=== PATIENT | male | born 1985 | race Caucasian/White ===

== ENCOUNTER 2016-10-15 15:53 | Emergency (ER) | payer OTHER ==
[~2016-10-15] VITALS: Ht 177.8 cm; Wt 69.4 kg
[2016-10-15 15:58] VITALS: TEMP 37.1; Ht 177.8 cm; Wt 69.4 kg
[2016-10-15] MEDS ORDERED: SODIUM CHLORIDE 0.9% 1000ML 1,000 ML IV STA (17:58)
--- NOTE | 2016-10-15 18:02 | EMERGENCY ROOM VISIT NOTE ---
History Report prepared by Oj: Mera Ochoa Under the Supervision of: Dr. Qasim Corral M.D. First contact with patient: 17:50 Chief Complaint: CARDIAC ASSESSMENT Stated Complaint: CHEST PAIN,SOB FOR 2 WKS Nursing Triage Summary: Pt c/o CP that started 2 weeks ago "it is a deep pain" Pt also c/o SOB "I have lymes so I am in pain constantly" History of Present Illness The patient is a 31 year old male who presents to the Emergency Room with complaints of persistent chest pain that began two weeks ago. He currently rates his discomfort as an 8/10 in severity. The patient states that his pain is worsened with deep breathing and pushing out his chest. He describes his pain as a tightness, and denies any sharp acute pain. The patient notes a family history of heart disease. The patient states that he has a history of Lyme Disease, noting that he typically has chronic pain. He denies following with anyone from infectious disease regularly. The patient additionally associates shortness of breath with his symptoms today. Source of History: patient Onset: two weeks ago Position: chest Symptom Intensity: 8/10 Quality: other (tightness) Timing: other (persistent) Modifying Factors (Worsening): breathing (deep), other (pushing chest out) Associated Symptoms: + SOB Review of Systems See HPI for pertinent positives & negatives. A total of 10 systems reviewed and were otherwise negative. Past Medical & Surgical Medical Problems: (1) Lyme disease Family History Heart disease Social History Smoking Status: Current Every Day Smoker Marital Status: single Occupation Status: unemployed Current/Historical Medications Scheduled Ada Carbonate (Ada Carbonate), 300 MG PO BID Quetiapine Fumarate Xr (Seroquel Xr), 150 MG PO HS Scheduled PRN Alprazolam (Xanax), 1 MG PO DAILY PRN for Anxiety Allergies Coded Allergies: No Known Allergies (Unverified , 10/15/16) Physical Exam Vital Signs Date Time Temp Pulse Resp B/P Pulse Ox O2 Delivery O2 Flow Rate FiO2 10/15/16 19:57 65 18 127/81 99 Room Air 10/15/16 19:24 71 18 141/92 99 Room Air 10/15/16 18:10 100 Room Air 10/15/16 18:07 88 10/15/16 18:05 77 18 147/99 100 Room Air 10/15/16 18:04 100 Room Air 10/15/16 15:58 37.1 87 18 179/83 97 Room Air Physical Exam GENERAL: Patient is a healthy-appearing well-nourished HEAD: Normocephalic atraumatic EYES: Ocular movements intact pupils equal and react to light OROPHARYNX mucous membranes are moist no exudates present no erythema or edema present NECK: Supple no nuchal rigidity CHEST: Tender to palpation of chest wall. Good equal expansion LUNGS: Clear and equal to auscultation CARDIAC: Normal S1 and S2 ABDOMEN: Soft nontender no guarding BACK: No CVA tenderness EXTREMITIES: No pain upon palpation normal muscle strength in all groups no clubbing cyanosis or edema NEURO: Patient is following commands is answering questions appropriately. Alert and oriented x3 Cranial Nerves 2-12 grossly intact Medical Decision & Procedures ER Provider Diagnostic Interpretation: X-ray results as stated below per interpretation by me and the radiologist: CHEST ONE VIEW PORTABLE CLINICAL HISTORY: CHEST PAIN dyspnea COMPARISON STUDY: No previous studies for comparison. FINDINGS: The bones soft tissues and hemidiaphragms are normal. The cardiomediastinal silhouette is normal. The lungs are clear. The pulmonary vasculature is normal. IMPRESSION: Negative chest. Electronically signed by: Memo Ballesteros M.D. 10/15/2016 6:40 PM Dictated Date/Time: 10/15/2016 6:40 PM Laboratory Results 10/15/16 18:00 Red Blood Count 4.89, Mean Corpuscular Volume 92.0, Mean Corpuscular Hemoglobin 31.5, Mean Corpuscular Hemoglobin Concent 34.2, Mean Platelet Volume 9.9, Neutrophils (%) (Auto) 73.4, Lymphocytes (%) (Auto) 15.3, Monocytes (%) (Auto) 9.4, Eosinophils (%) (Auto) 1.3, Basophils (%) (Auto) 0.3, Neutrophils # (Auto) 7.23, Lymphocytes # (Auto) 1.51, Monocytes # (Auto) 0.93, Eosinophils # (Auto) 0.13, Basophils # (Auto) 0.03 10/15/16 18:00 Test 10/15/16 18:00 10/15/16 18:10 10/15/16 18:16 White Blood Count 9.86 K/uL (4.8-10.8) Red Blood Count 4.89 M/uL (4.7-6.1) Hemoglobin 15.4 g/dL (14.0-18.0) Hematocrit 45.0 % (42-52) Mean Corpuscular Volume 92.0 fL (80-100) Mean Corpuscular Hemoglobin 31.5 pg (25-34) Mean Corpuscular Hemoglobin Concent 34.2 g/dl (32-36) Platelet Count 287 K/uL (130-400) Mean Platelet Volume 9.9 fL (7.4-10.4) Neutrophils (%) (Auto) 73.4 % Lymphocytes (%) (Auto) 15.3 % Monocytes (%) (Auto) 9.4 % Eosinophils (%) (Auto) 1.3 % Basophils (%) (Auto) 0.3 % Neutrophils # (Auto) 7.23 K/uL (1.4-6.5) Lymphocytes # (Auto) 1.51 K/uL (1.2-3.4) Monocytes # (Auto) 0.93 K/uL (0.11-0.59) Eosinophils # (Auto) 0.13 K/uL (0-0.5) Basophils # (Auto) 0.03 K/uL (0-0.2) RDW Standard Deviation 44.3 fL (36.4-46.3) RDW Coefficient of Variation 13.1 % (11.5-14.5) Immature Granulocyte % (Auto) 0.3 % Immature Granulocyte # (Auto) 0.03 K/uL (0.00-0.02) D-Dimer < 190 ug/L FEU (0-500) Est Creatinine Clear Calc Drug Dose 114.0 ml/min Estimated GFR () 127.2 Estimated GFR (Non- 109.8 BUN/Creatinine Ratio 11.9 (10-20) Calcium Level 9.5 mg/dl (8.5-10.1) Total Bilirubin 0.6 mg/dl (0.2-1) Direct Bilirubin 0.1 mg/dl (0-0.2) Aspartate Amino Transf (AST/SGOT) 21 U/L (15-37) Alanine Aminotransferase (ALT/SGPT) 38 U/L (12-78) Alkaline Phosphatase 68 U/L (45-117) Total Creatine Kinase 125 U/L (39-308) Creatine Kinase MB < 0.5 ng/ml (0.5-3.6) Creatine Kinase MB Ratio (0-3.0) Troponin I < 0.015 ng/ml (0-0.045) Total Protein 8.4 gm/dl (6.4-8.2) Albumin 4.4 gm/dl (3.4-5.0) Lipase 101 U/L (73-393) Ada Level 0.6 mMOL/L (0.6-1.2) Bedside Troponin I 0.000 ng/ml (0-0.045) Bedside Hemoglobin 16.7 g/dl (14.0-18.0) Bedside Hematocrit 49 % (42-52) Bedside Sodium 140 mEq/L (135-144) Bedside Potassium 3.9 mEq/L (3.3-5.0) Bedside Chloride 101 mEq/L (101-112) Bedside Total CO2 29 mEq/l (24-31) Anion Gap 15.0 mmol/L (16-25) Bedside Blood Urea Nitrogen 11 mg/dl (7-18) Bedside Creatinine 0.8 mg/dl (0.6-1.3) Bedside Glucose (other) 92 mg/dl (70-99) Bedside Ionized Calcium (Dejah) 1.22 mmol/l (1.12-1.32) Labs reviewed by ED physician. Medications Administered Medications (Trade) Dose Ordered Sig/Jessica Route Start Time Stop Time Status Last Admin Dose Admin Sodium Chloride (Nss 1000ml) 1,000 ml @ 999 mls/hr Q1H1M STAT IV 10/15/16 17:58 10/15/16 18:58 DC 10/15/16 17:58 999 MLS/HR ECG Indication: chest pain Rate (beats per minute): 80 Rhythm: normal sinus Findings: no acute ischemic change, no ectopy ED Course 1752: Past medical records reviewed. The patient was evaluated in room C5. A complete history and physical examination was performed. 1757: Ordered Sodium Chloride 1000 ml @ 999 mls/hr IV. 1956: I reevaluated the patient and he is resting comfortably. I discussed the exam findings with him and I discussed the treatment plan. He verbalized complete understanding and agreement. He is ready to go home. Medical Decision Differential diagnosis: Etiologies such as cardiac ischemia, aortic dissection, pulmonary embolism, pneumonia, pneumothorax, musculoskeletal, infections, pericarditis, myocarditis , esophageal rupture, gastrointestinal, as well as others were entertained. This is a 31-year-old male who presents emergency department complaining of chest pain. The pain patient's pain is reproducible on exam and gets worse when he takes a deep breath. I do believe it is from the rib cage. In addition the patient has a normal EKG normal CK-MB and troponin. He also has a normal d-dimer. Based on these findings I felt that the patient can be safely discharged home for follow-up with cardiology. In addition the patient has a remote history of Lyme disease. I encouraged follow-up with infectious disease. Patient was in agreement with the treatment plan. Impression Primary Impression: Precordial chest pain Scribe Attestation The scribe's documentation has been prepared under my direction and personally reviewed by me in its entirety. I confirm that the note above accurately reflects all work, treatment, procedures, and medical decision making performed by me. Departure Information Dispostion Home / Self-Care Referrals No Doctor, Assigned (PCP) Wong Aburto MD, Jeffrey G., M.D. Forms IMPORTANT VISIT INFORMATION, School Instructions, Work Instructions Patient Instructions ED Chest Pain Costochondritis, My [facility] Additional Instructions Follow up with DR Alvarenga's office- no strenuous activity until follow up Follow up with DR Aburto's office for lyme Take 600 mg Ibuprofen every 6 hours You have been examined and treated today on an emergency basis only. This is not a substitute for, or an effort to provide, complete comprehensive medical care. It is impossible to recognize and treat all injuries or illnesses in a single emergency department visit. It is therefore important that you follow up closely with your PCP. Call as soon as possible for an appointment. Thank you for your time and consideration. I look forward to speaking with you again soon. Please don't hesitate to call us if you have any questions.
[2016-10-15 18:10] VITALS: O2SAT 100
[2016-10-15 18:32] LABS: ISTAT CREATININE 0.8 mg/dl (0.6-1.3); ISTAT HEMOGLOBIN 16.7 g/dl (14.0-18.0); ISTAT IONIZED CALCIUM 1.22 mmol/l (1.12-1.32)
[2016-10-15] MEDS ORDERED: ALPR1TAB3 PO (18:35)
[2016-10-15] MEDS ORDERED: LTHSR/300 PO (18:35)
[2016-10-15] MEDS ORDERED: QUET150T PO (18:35)
[2016-10-15 18:36] LABS: BASO % 0.3 %; BASO ABS # 0.03 K/uL (0-0.2); COMPLETE YES; EOS % 1.3 %; IG% 0.3 %; LYMPH % 15.3 %; LYMPH ABS # 1.51 K/uL (1.2-3.4); MEAN CORPUSCULAR HEMOGLOBIN 31.5 pg (25-34); MEAN CORPUSCULAR HGB CONC 34.2 g/dl (32-36); MEAN PLATELET VOLUME 9.9 fL (7.4-10.4); MONO % 9.4 %; NEUT % 73.4 %; PLATELET COUNT 287 K/uL (130-400); RED BLOOD COUNT 4.89 M/uL (4.7-6.1); WHITE BLOOD COUNT 9.86 K/uL (4.8-10.8)
--- NOTE | 2016-10-15 18:42 | DIAGNOSTIC IMAGING REPORT ---
CHEST ONE VIEW PORTABLE CLINICAL HISTORY: CHEST PAIN dyspnea COMPARISON STUDY: No previous studies for comparison. FINDINGS: The bones soft tissues and hemidiaphragms are normal. The cardiomediastinal silhouette is normal. The lungs are clear. The pulmonary vasculature is normal. IMPRESSION: Negative chest. Electronically signed by: Memo Ballesteros M.D. 10/15/2016 6:40 PM Dictated Date/Time: 10/15/2016 6:40 PM
[2016-10-15 18:54] LABS: ALT/SGPT 38 U/L (12-78); AST/SGOT 21 U/L (15-37); BLOOD UREA NITROGEN 11 mg/dl (7-18); BUN/CREATININE RATIO 11.9 (10-20); CALCIUM 9.5 mg/dl (8.5-10.1); CARBON DIOXIDE 30 mmol/L (21-32); CHLORIDE 104 mmol/L (98-107); CREATININE 0.93 mg/dl (0.60-1.40); GLUCOSE 87 mg/dl (70-99); POTASSIUM 3.9 mmol/L (3.5-5.1); SODIUM 141 mmol/L (136-145)
[2016-10-15 18:59] LABS: ALKALINE PHOSPHATASE 68 U/L (45-117)
[2016-10-15 19:57] VITALS: BP 127/81; PULSE 65; O2SAT 99
== END 2016-10-15 20:24 | disposition home or self-care (01) ==
LOC: C.EDB 15:54 → C.EDC 20:24
DX: R07.2 Precordial pain (principal); A69.20 Lyme disease, unspecified; Z82.49 Family history of ischemic heart disease and other diseases of the circulatory system; Z79.899 Other long term (current) drug therapy; F17.210 Nicotine dependence, cigarettes, uncomplicated

== ENCOUNTER → 2016-11-02 | Outpatient (CLI) | payer OTHER ==
[~2016-11-02] MED LIST: ALPR1TAB3 PO; LTHSR/300 PO; QUET150T PO
== END | disposition home or self-care (01) ==
LOC: C.LAB1850 13:35
PROVIDERS: ATTEND Internal Medicine Clinical Cardiac Electrophysiology
DX: R07.9 Chest pain, unspecified (principal)

== ENCOUNTER → 2017-01-02 | Outpatient (CLI) | payer OTHER ==
[2017-01-02 16:31] LABS: BASO % 0.4 %; BASO ABS # 0.03 K/uL (0-0.2); COMPLETE YES; HEMATOCRIT 45.2 % (42-52); IG% 0.1 %; LYMPH % 22.8 %; LYMPH ABS # 1.52 K/uL (1.2-3.4); MEAN CELL VOLUME 92.6 fL (80-100); MEAN CORPUSCULAR HEMOGLOBIN 29.5 pg (25-34); MEAN CORPUSCULAR HGB CONC 31.9 g/dl (32-36); MEAN PLATELET VOLUME 9.6 fL (7.4-10.4); MONO % 10.8 %; NEUT % 61.9 %; PLATELET COUNT 300 K/uL (130-400); RED BLOOD COUNT 4.88 M/uL (4.7-6.1); WHITE BLOOD COUNT 6.68 K/uL (4.8-10.8)
[2017-01-02 17:01] LABS: ALT/SGPT 30 U/L (12-78); AST/SGOT 17 U/L (15-37); BLOOD UREA NITROGEN 11 mg/dl (7-18); CALCIUM 9.6 mg/dl (8.5-10.1); CARBON DIOXIDE 28 mmol/L (21-32); CHLORIDE 104 mmol/L (98-107); CREATININE 0.81 mg/dl (0.60-1.40); GLUCOSE 79 mg/dl (70-99); POTASSIUM 4.1 mmol/L (3.5-5.1); SODIUM 139 mmol/L (136-145)
[2017-01-02 17:03] LABS: ALKALINE PHOSPHATASE 73 U/L (45-117); C-REACTIVE PROTEIN 1.16 mg/dl (0-0.29)
[2017-01-02 18:14] LABS: LYME DISEASE AB IGG NEG (NEG); LYME DISEASE AB IGM NEG (NEG)
== END | disposition home or self-care (01) ==
LOC: C.LAB1850 15:35
PROVIDERS: ATTEND Family Medicine
DX: F31.9 Bipolar disorder, unspecified (principal); R07.89 Other chest pain; A69.20 Lyme disease, unspecified

== ENCOUNTER → 2017-07-06 | Outpatient (CLI) | payer OTHER ==
[2017-07-06 15:48] LABS: BLOOD UREA NITROGEN 10 mg/dl (7-18); BUN/CREATININE RATIO 11.4 (10-20); CALCIUM 9.4 mg/dl (8.5-10.1); CARBON DIOXIDE 29 mmol/L (21-32); CHLORIDE 104 mmol/L (98-107); CREATININE 0.84 mg/dl (0.60-1.40); GLUCOSE 88 mg/dl (70-99); POTASSIUM 4.3 mmol/L (3.5-5.1); SODIUM 136 mmol/L (136-145)
[2017-07-06 15:49] LABS: BASO % 0.5 %; BASO ABS # 0.03 K/uL (0-0.2); COMPLETE YES; EOS % 3.7 %; HEMATOCRIT 43.3 % (42-52); LYMPH % 27.1 %; LYMPH ABS # 1.48 K/uL (1.2-3.4); MEAN CELL VOLUME 92.3 fL (80-100); MEAN CORPUSCULAR HEMOGLOBIN 31.6 pg (25-34); MEAN CORPUSCULAR HGB CONC 34.2 g/dl (32-36); MEAN PLATELET VOLUME 9.7 fL (7.4-10.4); MONO % 11.5 %; NEUT % 57.2 %; PLATELET COUNT 250 K/uL (130-400); RED BLOOD COUNT 4.69 M/uL (4.7-6.1); WHITE BLOOD COUNT 5.47 K/uL (4.8-10.8)
--- NOTE | 2017-07-06 16:32 | DIAGNOSTIC IMAGING REPORT ---
RIGHT MIDDLE FINGER 3 VIEWS HISTORY: RIGHT FINGER PAIN COMPARISON: None. FINDINGS: There is no fracture or dislocation. Mild soft tissue swelling. No radiopaque foreign bodies. IMPRESSION: No fracture or dislocation within the right middle finger. Electronically signed by: Zane Cox M.D. 07/06/2017 4:31 PM Dictated Date/Time: 07/06/2017 4:29 PM
== END | disposition home or self-care (01) ==
LOC: C.RAD 14:52
PROVIDERS: ATTEND Family Medicine
DX: R22.31 Localized swelling, mass and lump, right upper limb (principal); F31.9 Bipolar disorder, unspecified

== ENCOUNTER → 2017-10-14 | Outpatient (CLI) | payer OTHER ==
[2017-10-14 15:26] LABS: BASO % 0.7 %; BASO ABS # 0.03 K/uL (0-0.2); EOS % 4.2 %; EOS ABS # 0.18 K/uL (0-0.5); HEMATOCRIT 43.7 % (42-52); HEMOGLOBIN 14.7 g/dL (14.0-18.0); LYMPH % 37.2 %; LYMPH ABS # 1.59 K/uL (1.2-3.4); MEAN CELL VOLUME 90.9 fL (80-100); MEAN CORPUSCULAR HEMOGLOBIN 30.6 pg (25-34); MEAN CORPUSCULAR HGB CONC 33.6 g/dl (32-36); MEAN PLATELET VOLUME 10.2 fL (7.4-10.4); MONO % 13.1 %; MONO ABS # 0.56 K/uL (0.11-0.59); NEUT % 44.8 %; NEUT ABS # 1.91 K/uL (1.4-6.5); PLATELET COUNT 255 K/uL (130-400); RED CELL DISTRIBUTION WIDTH CV 13.1 % (11.5-14.5); RED CELL DISTRIBUTION WIDTH SD 43.7 fL (36.4-46.3); WHITE BLOOD COUNT 4.27 K/uL (4.8-10.8)
[2017-10-14 15:54] LABS: BLOOD UREA NITROGEN 11 mg/dl (7-18); CALCIUM 9.6 mg/dl (8.5-10.1); CARBON DIOXIDE 27 mmol/L (21-32); CREATININE 0.79 mg/dl (0.60-1.40); GLUCOSE 87 mg/dl (70-99); POTASSIUM 4.2 mmol/L (3.5-5.1); SODIUM 135 mmol/L (136-145)
== END | disposition home or self-care (01) ==
LOC: C.LAB1850 14:07
PROVIDERS: ATTEND Family Medicine
DX: F31.9 Bipolar disorder, unspecified (principal)